=== PATIENT | female | born 1990 | race Caucasian/White ===

== ENCOUNTER 2021-06-25 14:00 | Inpatient (IN) | payer BC ==
[2021-06-25] MEDS: ELECTROLYTE-148 SOLN 1,000 ML IV SCH (16:00)
[2021-06-25] MEDS ORDERED: CITRIC ACID/SODIUM CITRATE 30 ML UNIT-DOSE CUP PO ONE (16:17)
[2021-06-25 17:05] VITALS: BMI 34.3
[2021-06-25] MEDS ORDERED: ONDANSETRON 4 MG/2 ML VIAL IVPUSH PRN (17:13)
[2021-06-25] MEDS ORDERED: ACETAMINOPHEN 325 MG TABLET (FP) PO PRN (17:13)
[2021-06-25] MEDS ORDERED: morphine SULFATE/Preservative Free 0.5 MG/ML (1cc Syringe) ONE (17:16)
[2021-06-25] MEDS ORDERED: ceFAZolin SODIUM 1 GM VIAL ONE (17:25)
[2021-06-25] MEDS ORDERED: ePHEDrine SULFATE 50 MG/1 ML AMPULE ONE (17:46)
[2021-06-25] MEDS ORDERED: KETOROLAC TROMETHAMINE 30 MG/1 ML VIAL ONE (17:53)
[2021-06-25] MEDS ORDERED: PHENYLEPHRINE HCL 10 MG/1 ML SINGLE DOSE VIAL ONE (17:58)
[2021-06-25] MEDS ORDERED: ONDANSETRON 4 MG/2 ML VIAL IVPB PRN (18:38)
[2021-06-25] MEDS ORDERED: IBUPROFEN 800 MG/8 ML IJ IVPB PRN (18:38)
[2021-06-25] MEDS ORDERED: ACETAMINOPHEN 1000 MG/100 ML VIAL (NON FORMULARY) IVPB PRN (18:38)
[2021-06-25] MEDS ORDERED: oxyCODONE HCL 5 MG TABLET PO PRN (18:38)
[2021-06-25] MEDS ORDERED: OXYTOCIN 20 UNITS in 0.9% NS 20 UNIT/1,000 ML INFUS.BAG IV SCH (18:45)
[2021-06-25] MEDS ORDERED: OXYTOCIN 20 UNITS in 0.9% NS 20 UNIT/1,000 ML INFUS.BAG IV ONE (19:28)
[2021-06-26] MEDS: CEFAZOLIN 2 GM in DEXTROSE 5%-WATER - 100 ML IVPB SCH ×2 (02:01→10:15)
[2021-06-26 08:43] LABS: BASO % 0.2 % (0-2.0); HEMATOCRIT 22.8 % (32.4-45.2); HEMOGLOBIN 7.8 GM/dL (10.7-15.3); LYMPH % 18.3 % (8-40); MCH 30.9 pg (25.7-33.7); MCHC 34.4 g/dl (32.0-36.0); MEAN CELL VOLUME 89.8 fl (80-96); MEAN PLT VOLUME 7.5 fl (7.5-11.1); MONO % 7.4 % (3.8-10.2); NEUT % 74.1 % (42.8-82.8); PLATELET COUNT 207 10^3/uL (134-434); RBC 2.54 M/mm3 (3.60-5.2); RDW 12.9 % (11.6-15.6); WHITE BLOOD COUNT 10.7 K/mm3 (4.0-10.0)
[2021-06-26] MEDS: ELECTROLYTE-148 SOLN 1,000 ML IV SCH (15:29)
[2021-06-26] MEDS: SIMETHICONE 80 MG TAB.CHEW (FP) PO PRN ×2 (18:29→21:05)
[2021-06-26] MEDS ORDERED: BISACODYL 10 MG SUPP.RECT RC PRN (18:38)
[2021-06-26] MEDS ORDERED: ACETAMINOPHEN 325 MG TABLET (FP) PO PRN (18:38)
[2021-06-26] MEDS: FERROUS SO4 325 MG TABLET (FP) PO SCH (21:04)
[2021-06-26] MEDS: SENNOSIDES/DOCUSATE COMBO (SENNA PLUS) TABLET (UD) PO PRN (21:05)
[2021-06-26] MEDS: IBUPROFEN 600 MG TABLET (FP) PO PRN (21:05)
[2021-06-27] MEDS: SIMETHICONE 80 MG TAB.CHEW (FP) PO PRN ×4 (05:48→21:02)
[2021-06-27] MEDS: IBUPROFEN 600 MG TABLET (FP) PO PRN ×4 (05:48→21:02)
[2021-06-27] MEDS: FERROUS SO4 325 MG TABLET (FP) PO SCH ×2 (10:07→21:02)
[2021-06-27] MEDS: PRENATAL VITAMINS W/ FOLIC ACID TABLET (FP) PO SCH (10:07)
[2021-06-27] MEDS: ELECTROLYTE-148 SOLN 1,000 ML IV SCH (15:27)
[2021-06-27] MEDS: SENNOSIDES/DOCUSATE COMBO (SENNA PLUS) TABLET (UD) PO PRN (21:02)
[2021-06-28 08:25] LABS: HEMATOCRIT 24.5 % (32.4-45.2); HEMOGLOBIN 8.4 GM/dL (10.7-15.3); MCH 31.1 pg (25.7-33.7); MCHC 34.3 g/dl (32.0-36.0); MEAN CELL VOLUME 90.9 fl (80-96); MEAN PLT VOLUME 7.5 fl (7.5-11.1); PLATELET COUNT 249 10^3/uL (134-434); RDW 13.4 % (11.6-15.6); WHITE BLOOD COUNT 8.5 K/mm3 (4.0-10.0)
[2021-06-28] MEDS ORDERED: IBUPROFEN 600 MG TABLET (FP) PO PRN (09:29)
[2021-06-28] MEDS: FERROUS SO4 325 MG TABLET (FP) PO SCH (09:53)
[2021-06-28] MEDS: PRENATAL VITAMINS W/ FOLIC ACID TABLET (FP) PO SCH (09:53)
[2021-06-28 10:48] VITALS: BP 128/82; PULSE 89; TEMP 97.5
== END 2021-06-28 12:15 | disposition home or self-care (01) | DRG 788 ==
LOC: JLDR 15:40 → J3W 20:29
PROVIDERS: ADMIT Specialist; ATTEND Specialist
PROC: 10D00Z1 Extraction of Products of Conception, Low, Open Approach (ICD-10-PCS; principal; 2021-06-25)
DX: O36.63X0 Maternal care for excessive fetal growth, third trimester, not applicable or unspecified (principal); O24.420 Gestational diabetes mellitus in childbirth, diet controlled; O34.43 Maternal care for other abnormalities of cervix, third trimester; Z3A.40 40 weeks gestation of pregnancy; Z37.0 Single live birth; Z88.1 Allergy status to other antibiotic agents
CPT/HCPCS: 36415; 85025; 85027; 88307-TC; J0131